=== PATIENT | female | born 1945 | race African-American/Black ===

== ENCOUNTER 2017-09-17 10:32 | Outpatient (CLI) | payer MEDICARE, BC ==
--- NOTE | 2017-09-17 14:16 | MRI ---
MRI LUMBAR SPINE NONCONTRAST: DATE: 09/17/17 HISTORY: 72-year-old female with M54.16 lumbar radiculopathy. Bilateral lower extremity weakness for 3 weeks. COMPARISON: None. FINDINGS: For the purposes of this report, it will be assumed that there are 5 lumbar-type vertebrae. The justus tebral body heights are maintained. There are several focal T2 hyperintense lesions in the left kidney, at least a majority of which pro bably represent cysts. There are diffuse disc bulges encroaching upon the anterior aspect of the spi nal canal at every imaged level from T10-11 through L4-5. All of these levels have disc desiccation. With the exception of L2-3, there is disc space narrowing of varying degrees throughout all of thes e levels. The L5-S1 disc height and disc signal are normal. The disc space narrowing is moderate at T10-11, T11-12, T12-L1, and L4-5. The disc space narrowing is mild at L1-2 and L3-4. There are mild Modic Type I changes at the anterior aspects of the end plates at T10-11, and especially T11-12 and T12-L1. The bone marrow signal is relatively normal elsewhere. The findings by individual levels are as follows: T10-11: The disc bulge or broad based disc-osteophytic bar complex, plus ligamentum flavum thickening, resul t in moderate degree of central spinal canal stenosis. Bilateral moderate degenerative facet changes result in moderate to severe bilateral neural foraminal stenosis. T11-12: Mild central spinal canal stenosis. Mild to moderate right neural foraminal stenosis. Moderate left neural foraminal stenosis. T12-L1: Mild central stenosis. Moderate right neural foraminal stenosis. No left neural foraminal stenosis. L1-2: Conus medullaris terminates at upper L2 level. Mild central spinal canal stenosis. Mild to moderate thecal sac stenosis. Moderate bilateral neural foraminal stenosis, right worse than left. L2-3: Mild to moderate central spinal canal stenosis. Moderate thecal sac stenosis. Moderate bilateral denise ral foraminal stenosis, right worse than left. Bilateral moderate degenerative facet changes. L3-4: Moderate bilateral neural foraminal stenosis. Moderate to severe central spinal canal stenosis. Minerva re thecal sac stenosis. L4-5: Severe bilateral degenerative facet disease causes a Grade I anterolisthesis of L4 on L5. Mild right neural foraminal stenosis. Mild to moderate left neural foraminal stenosis. Severe central spinal c anal stenosis with distortion of spinal canal into trefoil configuration. L5-S1: Mild right degenerative facet changes. Moderate left degenerative facet changes. No right neural for aminal stenosis. Moderate left neural foraminal stenosis. No central stenosis. IMPRESSION: 1. Lumbar spondylosis, with multilevel degenerative disc disease of varying degrees, at all visuali zed lower thoracic levels, and all lumbar levels except L5-S1. 2. At L4-5, there is severe facet osteoarthrosis causing Grade I spondylolisthesis and severe centr al spinal canal stenosis. 3. At L3-4, there is moderate-severe central spinal canal stenosis. 4. Moderate central spinal canal stenosis and high grade bilateral neuroforaminal stenosis at lower thoracic spine at the T10-11 level. KATHY Foreman POS: JAVIER
== END 2017-09-17 10:33 | disposition home or self-care (01) ==
LOC: MRI 10:32
PROVIDERS: ATTEND Orthopaedic Surgery
DX: M47.26 Other spondylosis with radiculopathy, lumbar region (principal); M48.061 Spinal stenosis, lumbar region without neurogenic claudication; M48.04 Spinal stenosis, thoracic region; M51.16 Intervertebral disc disorders with radiculopathy, lumbar region; M43.16 Spondylolisthesis, lumbar region
CPT/HCPCS: 72148

== ENCOUNTER 2020-01-25 07:46 | Outpatient (CLI) | payer MEDICARE, BC ==
[2020-01-25 14:05] LABS: #Basophils 0.1 thou/uL (0.0-0.2); #Eosinphils 0.4 thou/uL (0.0-0.7); #Lymphocytes 2.7 thou/uL (1.20-3.40); #Monocytes 1.2 thou/uL (0.11-0.59); #Neutrophils 6.2 thou/uL (1.40-6.50); %Basophils 0.6 % (0.0-1.0); %Eosinophils 3.5 % (0.0-10.0); %Lymphocytes 25.3 % (21.0-51.0); %Monocytes 11.3 % (0.0-10.0); %Neutrophils 59.3 % (42.0-75.0); Hemoglobin 11.4 g/dL (12.0-16.0); Mean Corpuscular Hemoglobin 28.4 pg (27.0-31.0); Mean Corpuscular Volume 88.9 fL (78.0-98.0); Mean Platelet Volume 8.6 fL (7.4-10.4); Platelet Count 224 thou/uL (130-400); RBC Distribution Width 12.5 % (11.5-14.5); White Blood Cell (WBC) Count 10.5 thou/uL (4.8-10.8)
[2020-01-25 14:31] LABS: Anion Gap 11 mmol/L (10-20); BUN (Urea Nitrogen) 19 mg/dL (9.8-20.1); Calc. Creatinine Clearance 0 mL/min (70-130); Calcium 9.1 mg/dL (7.8-10.44); Carbon Dioxide 26 mmol/L (23-31); Chloride 105 mmol/L (98-107); Estimated GFR-MDRD 59; Glucose 122 mg/dL (83-110); Sodium 138 mmol/L (136-145)
--- NOTE | 2020-01-26 08:33 | EKG ---
Test Reason : Blood Pressure : / mmHG Vent. Rate : 094 BPM Atrial Rate : 094 BPM P-R Int : 144 ms QRS Dur : 076 ms QT Int : 334 ms P-R-T Axes : 071 064 035 degrees QTc Int : 417 ms Normal sinus rhythm Normal ECG When compared with ECG of 19-JUN-2015 12:50, T wave inversion no longer evident in Inferior leads Confirmed by DR. Patt BIRD ([id number]) on 01/26/2020 8:32:51 AM Referred By: JANETTE Confirmed By:DR. Patt IBRD
== END 2020-01-25 07:47 | disposition home or self-care (01) ==
LOC: LABBT 07:46
PROVIDERS: ATTEND Orthopaedic Surgery
DX: Z01.818 Encounter for other preprocedural examination (principal); M75.101 Unspecified rotator cuff tear or rupture of right shoulder, not specified as traumatic
CPT/HCPCS: 80048; 85025; 93005; 93010

== ENCOUNTER 2020-01-27 07:22 | Day surgery (SDC) | payer MEDICARE, BC ==
[2020-01-25 12:45] VITALS: BMI 37.5
[2020-01-27] MEDS ORDERED: Vancomycin 1.5 GRAM/300 ML BAG 1.5 GM/300 ML BAG ONE (07:51)
[2020-01-27] MEDS ORDERED: Fentanyl 100 MCG/2 ML VIAL ONE ×2 (07:53→09:42)
[2020-01-27] MEDS ORDERED: Midazolam HCl 2 mg/2 ml Vial ONE (07:53)
[2020-01-27] MEDS ORDERED: Ondansetron PF 4 MG/2 ML Vial IVP PRN (08:21)
[2020-01-27] MEDS ORDERED: Zolpidem Tartrate 5 MG TAB PO PRN (08:21)
[2020-01-27] MEDS ORDERED: Promethazine HCl 25 MG/ML VIAL IM PRN ×2 (08:21→11:21)
[2020-01-27] MEDS ORDERED: traMADol HCl 50 MG TAB PO PRN ×2 (08:21)
[2020-01-27] MEDS ORDERED: Acetaminophen 325 MG TAB PO PRN (08:21)
[2020-01-27] MEDS ORDERED: HYDROcodone/Acetaminophen 10/325 mg Tablet PO PRN ×2 (08:21)
[2020-01-27] MEDS ORDERED: Ropivacaine 0.2% 550 ML 550 ML NERVE BLCK SCH (08:21)
[2020-01-27] MEDS ORDERED: Fentanyl 100 MCG/2 ML VIAL IV PRN (08:22)
[2020-01-27] MEDS ORDERED: Phenylephrine 10 MG/ML VIAL ONE (09:26)
[2020-01-27] MEDS ORDERED: Glycopyrrolate 0.2 MG/ML 5 ML SYRINGE ONE (10:29)
[2020-01-27] MEDS ORDERED: PROPOFOL 200 MG/20 ML VIAL ONE (10:29)
[2020-01-27] MEDS ORDERED: Ropivacaine 0.5% HCl/PF (150 MG/30 ML VIAL) ONE (10:29)
[2020-01-27] MEDS ORDERED: Ropivacaine 0.2% HCl/PF (40 MG/20 ML VIAL) ONE (10:29)
[2020-01-27] MEDS ORDERED: Lidocaine 1% PF 5 ML VIAL ONE (10:29)
[2020-01-27] MEDS ORDERED: Ondansetron PF 4 MG/2 ML Vial ONE (10:29)
[2020-01-27] MEDS ORDERED: Rocuronium Bromide 10 MG/ML (10ML VIAL) ONE (10:29)
[2020-01-27] MEDS ORDERED: PHENYLEPHRINE-NS 100 MCG/ML 10 ML SYRINGE ONE (10:29)
[2020-01-27] MEDS ORDERED: Promethazine HCl 25 MG/ML VIAL SLOW IVP PRN (11:21)
[2020-01-27] MEDS ORDERED: PACU-Morphine 4MG/ML VIAL SLOW IVP PRN (11:21)
[2020-01-27] MEDS ORDERED: HYDROcodone/Acetaminophen 5/325 mg Tablet ONE (13:44)
--- NOTE | 2020-01-27 14:12 | OP ---
DATE OF PROCEDURE: 01/27/2020 PREOPERATIVE DIAGNOSES: Right shoulder impingement, large rotator cuff tear, biceps tendon instability, and pain. POSTOPERATIVE DIAGNOSES: Right shoulder impingement, large rotator cuff tear, biceps tendon instability, and pain. PROCEDURE PERFORMED: Right open shoulder subacromial decompression followed by open right shoulder rotator cuff repair followed by open right shoulder biceps tenodesis. ELECTRONIC PREPRESS TECHNICIAN: None. BLOOD LOSS: 40. COMPLICATIONS: None. ANESTHESIA: She had a general anesthetic as well as a preoperative block. IMPLANTS: We used 2 double-loaded titanium rotator cuff anchors. We used two BioComposite 4.75 SwiveLocks. We used one BioComposite 7 x 23 Bio-Tenodesis screw. INDICATIONS: This 74-year-old female who is having problems with pain, weakness, and inability to do her activities of daily living. An MRI was found to have a large rotator cuff tear. At this time, she opted to have surgery. DESCRIPTION OF PROCEDURE: After all appropriate consent forms were explained and signed, she was taken to the operative room and at this time was given general anesthetic. Once the level of anesthesia was appropriate, the patient was placed in a modified beach chair position with all bony prominences well padded. Beanbag was inflated to hold in this position. The right arm and upper extremity were then prepped and draped in standard surgical fashion. Incision was made with a 10 blade down through skin. Bovie was used to coagulate any brisk venous bleeding. We then found the anterior raphae, took this up proximally to expose the distal anterior acromion. A Jerad was placed underneath the bone, and a saw was used to perform anterior inferior acromioplasty. A rasp was used to smooth this off. At this time, we did remove some of the bursal tissue to gain exposure of our rotator cuff. The rotator cuff tendon was noted. It was freed up superiorly and inferiorly. After placing some traction sutures, and at this time, we then found our biceps tendon. We removed it off the superior labrum using our scissors. After removing the intra-articular portion of the biceps tendon, we sutured the tendon and placed our drill, reamed with a 7 mm reamer to a depth of 25 and placed a 7 x 23 BioComposite Bio-Tenodesis screw in standard fashion. Sutures were tied over top of this, so could not back out. Subscapularis tendon was intact and at this time, we freshened of the edge of our rotator cuff, which was the entire supraspinatus, most of the infraspinatus and at this juncture, it took a turn toward the medial aspect, leaving us with a U-shaped tear. Once we freshened the edges of the tendon and the tendon tear, multiple sutures were placed with FiberWire closing this portion of the tear. We then used a combination of curette and rongeur to freshen up our greater tuberosity. We then placed 2 double-loaded titanium cuff anchors at the cartilage bone interface. We ran the 4 sets of sutures up through the tendon in mattress fashion. We then tied these, took one pair of sutures from each set going anterior and posterior, punched and placed two 4.75 SwiveLock for a double-row repair. At this time, we took the shoulder through full range of motion. There was no tension on the repair. The repair was fully closed and at this time, we thoroughly irrigated and dried. We then placed multiple Ja-Manolo stitches with #1 Ethibond into the anterior deltoid. It had been taken off the bone and placed this through the acromion with the needle tying these over top. Once the three sutures were done, we then over ran a Vicryl suture to close our deltoid split and the fascia on top of the deltoid repair. We then thoroughly irrigated and dried some more. We then used 2-0 Vicryl and surgical jb to close skin. A sterile bulky dressing was applied. The patient was then awakened. She was taken to recovery room in stable condition. All counts were correct at the end of the case and she did receive preoperative IV antibiotics. Job ID: [id number]
== END 2020-01-27 14:05 | disposition home or self-care (01) ==
LOC: SDC 07:22
PROVIDERS: ATTEND Orthopaedic Surgery
PROC: 0LQ10ZZ Repair Right Shoulder Tendon, Open Approach (ICD-10-PCS; principal; 2020-01-27)
PROC: 0RBG0ZZ Excision of Right Acromioclavicular Joint, Open Approach (ICD-10-PCS; 2020-01-27)
PROC: 0PB50ZZ Excision of Right Scapula, Open Approach (ICD-10-PCS; 2020-01-27)
PROC: 0LS10ZZ Reposition Right Shoulder Tendon, Open Approach (ICD-10-PCS; 2020-01-27)
PROC: 0RHJ04Z Insertion of Internal Fixation Device into Right Shoulder Joint, Open Approach (ICD-10-PCS; 2020-01-27)
PROC: 3E0T3BZ Introduction of Anesthetic Agent into Peripheral Nerves and Plexi, Percutaneous Approach (ICD-10-PCS; 2020-01-27)
DX: M75.101 Unspecified rotator cuff tear or rupture of right shoulder, not specified as traumatic (principal); M25.811 Other specified joint disorders, right shoulder; M25.311 Other instability, right shoulder; G89.18 Other acute postprocedural pain; E78.5 Hyperlipidemia, unspecified; E11.9 Type 2 diabetes mellitus without complications; K21.9 Gastro-esophageal reflux disease without esophagitis; M19.90 Unspecified osteoarthritis, unspecified site; G89.29 Other chronic pain; M54.9 Dorsalgia, unspecified; E78.00 Pure hypercholesterolemia, unspecified; I10 Essential (primary) hypertension; J45.909 Unspecified asthma, uncomplicated; E66.9 Obesity, unspecified; Z68.37 Body mass index [BMI] 37.0-37.9, adult; Z79.51 Long term (current) use of inhaled steroids; Z79.82 Long term (current) use of aspirin; Z79.84 Long term (current) use of oral hypoglycemic drugs; Z79.899 Other long term (current) drug therapy
CPT/HCPCS: 23130; 23412; 23430; 64416; A4306; C1713 ×2; J0690; J2250; J2370; J2795; J3010

== ENCOUNTER 2023-08-01 16:52 | Outpatient (CLI) | payer MEDICARE, BC | END 2023-08-01 16:53 | disposition home or self-care (01) | LOC: RAD 16:52 | PROVIDERS: ATTEND Nurse Practitioner Family | DX: M79.645 Pain in left finger(s) (principal) ==